=== PATIENT | female | born 1985 | race Caucasian/White ===

== ENCOUNTER 2019-06-02 17:23 | Emergency (ER) | payer MEDICAID ==
[~2019-06-02] VITALS: Ht 162.6 cm; Wt 101.8 kg
[~2019-06-02 17:23] MED LIST: GENTAMICIN EYE D5 ML OD; NATURAL IRON65 MG PO; NORCO 325 MG-51 TA1 PO
[2019-06-02] MEDS ORDERED: PRENATAL 19 TA1 EACH PO (17:33)
[2019-06-02 18:24] LABS: EOS # 0.1 (0.04-0.40); HEMATOCRIT 30.5 % (37.0-47.0); HEMOGLOBIN 8.9 g/dL (12.5-16.0); LYMPH# 2.1 (1.50-4.00); MEAN CELL VOLUME 70 fl (78-100); MEAN PLATELET VOLUME 9.8 fl (7.4-10.4); MONO # 1.2 (0.20-0.80); PLATELET COUNT 422 K/mm3 (130-400); RED BLOOD COUNT 4.37 M/mm3 (4.10-5.30); WHITE BLOOD COUNT 13.6 K/mm3 (4.8-10.8)
[2019-06-02 18:32] LABS: ALBUMIN 3.1 g/dL (3.5-5.0); POTASSIUM 3.9 mmol/L (3.5-5.1)
[2019-06-02 18:34] LABS: TOTAL PROTEIN 7.3 g/dL (6.4-8.3)
[2019-06-02 18:36] LABS: TOTAL BILIRUBIN 0.5 mg/dL (0.2-1.2)
[2019-06-02 18:43] LABS: MEAN CORPUSCULAR HEMOGLOBIN 20 pg (27-31); MEAN CORPUSCULAR HGB CONC 29 g/dL (33-37)
[2019-06-02 18:44] LABS: URINE APPEARANCE HAZY; URINE BILIRUBIN NEGATIVE (NEGATIVE); URINE COLOR DK YELLOW; URINE GLUCOSE NEGATIVE (NEGATIVE); URINE KETONE 2+ (NEGATIVE); URINE PROTEIN(semi-quant) TRACE mg/dL (NEGATIVE)
[2019-06-02 18:45] LABS: URINE BLOOD NEGATIVE (NEGATIVE); URINE LEUKOCYTE ESTERASE NEGATIVE (NEGATIVE); URINE MUCUS PRESENT (NOT PRESENT); URINE NITRATE NEGATIVE (NEGATIVE); URINE UROBILINOGEN NORMAL (NORMAL); URINE WBC 0-1 /hpf (0-3)
[2019-06-02] MEDS ORDERED: ZOFRAN ODT4 MG PO (20:42)
[2019-06-02 20:57] VITALS: BP 112/67
== END 2019-06-02 20:58 | disposition home or self-care (01) ==
LOC: ED 17:23
PROVIDERS: Family Medicine
DX: O21.9 Vomiting of pregnancy, unspecified (principal); Z3A.30 30 weeks gestation of pregnancy
CPT/HCPCS: J7030